=== PATIENT | female | born 1960 | race Caucasian/White ===

== ENCOUNTER 2020-03-07 15:06 | Emergency (ER) | payer MEDICARE ==
[~2020-03-07] VITALS: Ht 157.5 cm; Wt 75.8 kg
--- NOTE | 2020-03-07 15:18 | NUR ---
PT AMBULATORY TO ED ROOM 25 W/ STEADY GAIT.
--- NOTE | 2020-03-07 15:42 | NUR ---
PT URINE SPECIMEN ON COUNTER; CLEAR YELLOW
--- NOTE | 2020-03-07 15:44 | NUR ---
PT C/O PAIN FROM MID-BACK TO POSTERIOR HEAD: STARTED YESTERDAY. DENIES TRAUMA, FALL, VOMITING, FEVER, UTI SX. + NAUSEA. NO PAIN MEDS TAKEN.
[2020-03-07] MEDS ORDERED: MORPHINE SULFATE 4 MG/ML, 1ML IVPush ONE ×2 (16:30→19:00)
[2020-03-07] MEDS ORDERED: ONDANSETRON 2MG/ML, 2ML IVPush ONE ×2 (16:30→19:00)
[2020-03-07] MEDS ORDERED: MORPHINE SULFATE 4 MG/ML, 1ML ONE ×2 (16:32→18:25)
[2020-03-07] MEDS ORDERED: ONDANSETRON 2MG/ML, 2ML ONE ×2 (16:32→18:25)
[2020-03-07 16:45] LABS: BASOPHILS # (AUTO) 0.03 x10^3/uL (0-0.1); BASOPHILS % (AUTO) 0 % (0-1); EOSINOPHILS # (AUTO) 0.05 x10^3/uL (0-0.4); EOSINOPHILS % (AUTO) 1 % (1-7); LYMPHOCYTES # (AUTO) 2.93 x10^3/uL (1-3.4); LYMPHOCYTES % (AUTO) 40 % (22-44); MD NO; MEAN CORPUSCULAR HEMOGLOBIN 31.7 pg (27.0-34.8); MEAN CORPUSCULAR HGB CONC 33.6 g/dL (32.4-35.8); MEAN CORPUSCULAR VOLUME 94.4 fL (80-100); MEAN PLATELET VOLUME 7.1 fL (7.4-10.4); MONOCYTES # (AUTO) 0.61 x10^3/uL (0.2-0.8); MONOCYTES % (AUTO) 8 % (2-9); NEUTROPHILS # (AUTO) 3.64 x10^3/uL (1.8-6.8); NEUTROPHILS % (AUTO) 50 % (42-75); PLATELET COUNT 321 x10^3/uL (130-400); RED BLOOD COUNT 4.17 x10^6/uL (3.82-5.3); RED CELL DISTRIBUTION WIDTH 12.7 % (9.6-15.2)
--- NOTE | 2020-03-07 16:47 | NUR ---
ZOFRAN & MORPHINE GIVEN PER EMAR.
--- NOTE | 2020-03-07 16:49 | NUR ---
SIDE RAILS UP X2, CALL LIGHT W/IN REACH.
[2020-03-07 16:50] LABS: MICROSCOPIC AUTO
[2020-03-07 16:58] LABS: ALBUMIN 3.7 g/dL (3.4-5.0); ANION GAP 7 mmol/L (5-15); CALCIUM 8.9 mg/dL (8.5-10.1); CHLORIDE 110 mmol/L (98-107)
--- NOTE | 2020-03-07 16:59 | NUR ---
PT REPORT TO MORRO DIAZ RN. PT CARE TRANSFERRED.
[2020-03-07 17:04] LABS: ALANINE AMINOTRANSFERASE 35 U/L (12-78); ALKALINE PHOSPHATASE 71 U/L (45-117); BILIRUBIN,TOTAL 0.3 mg/dL (0.2-1.0); CREATININE 0.79 mg/dL (0.55-1.02); TOTAL PROTEIN 7.4 g/dL (6.4-8.2); TROPONIN I < 0.015 ng/mL (0.000-0.045)
[2020-03-07] MEDS ORDERED: KETOROLAC 30 MG/1 ML ONE (17:21)
--- NOTE | 2020-03-07 17:23 | NUR ---
TASK RN NOTE: PT LAYING BACK IN BED, MEDICATED PER EMAR. NAD NOTED AT THIS TIME. RESPIRATIONS EVEN AND UNLABORED SATURATING ON RA. AWAITING CT.
[2020-03-07] MEDS ORDERED: KETOROLAC 30 MG/1 ML IVPush ONE (17:30)
--- NOTE | 2020-03-07 18:43 | NUR ---
ZOFRAN AND MORPHINE GIVEN PER EMAR. PT ABLE TO SIT UP QUICKLY FROM LOW MORRIS POSITION W/OUT DIFFICULTY.
[2020-03-07 19:35] VITALS: BP 94/51
--- NOTE | 2020-03-07 19:44 | NUR ---
DC INSTRUCTIONS DISCUSSED W/ PT. PT STATES PROVIDER WAS GOING TO GIVE HER A SCRIPT FOR CELEXA 40MG PO DAILY AND GABAPENTIN 300 CAP 2 CAP HS. WILL CONSULT PROVIDER.
[2020-03-07] MEDS ORDERED: GABA300C PO (19:46)
[2020-03-07] MEDS ORDERED: CITA40TA12 PO (19:46)
== END 2020-03-07 19:54 | disposition home or self-care (01) ==
LOC: ED 19:45
DX: K85.90 Acute pancreatitis without necrosis or infection, unspecified (principal); R10.13 Epigastric pain; M54.6 Pain in thoracic spine; M54.5 Low back pain; R11.0 Nausea; F17.200 Nicotine dependence, unspecified, uncomplicated; R94.31 Abnormal electrocardiogram [ECG] [EKG]
CPT/HCPCS: 36415; 71046; 74176; 80053; 81001; 83690; 84484; 85025; 93005; 96374; 96375; 96376; 99285; J1885; J2270; J2405

== ENCOUNTER 2020-03-11 21:03 | Emergency (ER) | payer MEDICARE, MEDICAID ==
[~2020-03-11] VITALS: Ht 157.5 cm; Wt 75.0 kg
[~2020-03-11 21:03] MED LIST: CITA40TA12 PO; GABA300C PO
[2020-03-11 21:18] VITALS: BP 143/94
[2020-03-11 21:53] LABS: BASOPHILS # (AUTO) 0.05 x10^3/uL (0-0.1); BASOPHILS % (AUTO) 1 % (0-1); EOSINOPHILS # (AUTO) 0.19 x10^3/uL (0-0.4); EOSINOPHILS % (AUTO) 2 % (1-7); LYMPHOCYTES # (AUTO) 3.13 x10^3/uL (1-3.4); LYMPHOCYTES % (AUTO) 40 % (22-44); MD NO; MEAN CORPUSCULAR HEMOGLOBIN 31.8 pg (27.0-34.8); MEAN CORPUSCULAR HGB CONC 33.6 g/dL (32.4-35.8); MEAN CORPUSCULAR VOLUME 94.7 fL (80-100); MEAN PLATELET VOLUME 7.4 fL (7.4-10.4); MONOCYTES # (AUTO) 0.62 x10^3/uL (0.2-0.8); MONOCYTES % (AUTO) 8 % (2-9); NEUTROPHILS # (AUTO) 3.89 x10^3/uL (1.8-6.8); NEUTROPHILS % (AUTO) 49 % (42-75); PLATELET COUNT 373 x10^3/uL (130-400); RED BLOOD COUNT 4.34 x10^6/uL (3.82-5.3); RED CELL DISTRIBUTION WIDTH 12.9 % (9.6-15.2)
[2020-03-11 22:01] LABS: ALANINE AMINOTRANSFERASE 52 U/L (12-78); ANION GAP 5 mmol/L (5-15); CALCIUM 9.3 mg/dL (8.5-10.1); CHLORIDE 110 mmol/L (98-107); CREATININE 0.92 mg/dL (0.55-1.02)
[2020-03-11 22:05] LABS: ALKALINE PHOSPHATASE 84 U/L (45-117); BILIRUBIN,TOTAL 0.2 mg/dL (0.2-1.0); TOTAL PROTEIN 7.6 g/dL (6.4-8.2); TROPONIN I < 0.015 ng/mL (0.000-0.045)
== END 2020-03-12 02:08 | disposition left against medical advice (07) ==
LOC: ED 03-12 01:36
DX: R10.9 Unspecified abdominal pain (principal); M54.9 Dorsalgia, unspecified; R11.2 Nausea with vomiting, unspecified
CPT/HCPCS: 36415; 71046; 80053; 83690; 84484; 85025; 93005; 99285